=== PATIENT | male | born 2000 ===

== ENCOUNTER 2024-02-19 02:02 | Emergency (ER) | payer SELFPAY ==
[2024-02-19 02:11] VITALS: BP 113/73; PULSE 73; RESP 14; TEMP 36.6; O2SAT 98; BMI 24.0
== END 2024-02-19 03:47 | disposition left against medical advice (07) ==
PROVIDERS: Emergency Provider Emergency Medicine
DX: K08.89 Other specified disorders of teeth and supporting structures (principal); Z53.21 Procedure and treatment not carried out due to patient leaving prior to being seen by health care provider
CPT/HCPCS: 99281